=== PATIENT | female | born 1980 | race Caucasian/White ===

== ENCOUNTER 2016-11-08 14:42 | Emergency (ER) | payer MEDICAID ==
[~2016-11-08] VITALS: Ht 157.5 cm; Wt 72.6 kg
[2016-11-08 14:46] VITALS: BP 151/96
--- NOTE | 2016-11-08 14:46 | NUR ---
PT TAKEN TO BED 7.
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
--- NOTE | 2016-11-08 15:40 | NUR ---
Patient being evaluated by DR BRISCOE at bedside.
[2016-11-08] MEDS ORDERED: oxyCODONE/APAP 5/325 MG 1 TAB TAB PO ONE (15:50)
--- NOTE | 2016-11-08 16:17 | NUR ---
PT TAKEN TO X RAY & CT VIA GURSERGEY, ACCOMPANIED BY LETY MINOR.
--- NOTE | 2016-11-08 17:49 | NUR ---
Patient appears to be resting comfortably in bed. Vital Signs within normal limits. Respirations even and unlabored.WILL CONTINUE TO MONITOR.
--- NOTE | 2016-11-08 17:50 | NUR ---
Patient being reevaluated by DR BRISCOE at bedside.
[2016-11-08 17:52] VITALS: BP 121/70
== END 2016-11-08 17:52 | disposition home or self-care (01) ==
LOC: MED 14:42
DX: S09.90XA Unspecified injury of head, initial encounter (principal); R07.89 Other chest pain; M79.601 Pain in right arm; V47.6XXA Car passenger injured in collision with fixed or stationary object in traffic accident, initial encounter; Y93.I9 Activity, other involving external motion; Y92.488 Other paved roadways as the place of occurrence of the external cause; Y99.8 Other external cause status
CPT/HCPCS: 70450; 71120; 73090; 99284